=== PATIENT | female | born 1980 | race Caucasian/White ===

== ENCOUNTER 2024-07-10 16:08 | Emergency (ER) | payer OTHER, SELFPAY ==
[2024-07-10 16:36] VITALS: BP 175/80; PULSE 72; RESP 18; TEMP 36.7; O2SAT 100
--- NOTE | 2024-07-10 16:52 | ED.URI ---
HPI - URI/Sore Throat General Chief Complaint: Upper Respiratory Infection Stated Complaint: Covid Test Time Seen by Provider: 07/10/24 16:41 Source: patient and RN notes reviewed Mode of arrival: ambulatory Limitations: no limitations History of Present Illness HPI Narrative: Patient presents today complaining of fatigue since yesterday, cough and sore throat since this morning. She has tried no medication for symptoms prior to arrival. Her mother and 3 other family members have tested positive for COVID yesterday. Denies history of asthma or COPD. Patient vapes. Related Data Home Medications Medication Instructions Recorded Confirmed bupropion HCl 150 mg 24 hr tablet, 150 mg PO DAILY 07/10/24 07/10/24 extended release tiotropium bromide 1.25 inhalation 07/10/24 mcg/actuation mist for inhalation (Spiriva Respimat) Allergies Allergy/AdvReac Type Severity Reaction Status Date / Time aspirin Allergy Itching Verified 07/10/24 16:43 Penicillins Allergy Itching Verified 07/10/24 16:43 Sulfa (Sulfonamide Allergy Itching Verified 07/10/24 16:44 Antibiotics) tramadol Allergy Itching Verified 07/10/24 16:44 Review of Systems Review of Systems: CONSTITUTIONAL: Denies body aches, fever, chills, or sweats.+ fatigue EYES: Denies visual changes, redness, or discharge. ENT: Denies rhinorrhea, congestion, or otalgia.+ sore throat CARDIOVASCULAR: Denies chest pain, palpitations, or edema. RESPIRATORY: Denies dyspnea.+ cough GASTROINTESTINAL: Denies abdominal pain, nausea, vomiting, or diarrhea. GENITOURINARY: Denies dysuria or hematuria. SKIN: Denies rash, itching, or wounds. MUSCULOSKELETAL: Denies back pain, joint pain, or myalgia. NEUROLOGIC: Denies headache, numbness, tingling, or weakness. PSYCH: Denies depression or anxiety. PMFSH Comments At time of signature, I have reviewed and agree with nursing past medical, surgical, social and family history unless otherwise noted. Please see nursing chart for further information. There is no relevant family history pertinent to the presenting complaint Exam Narrative: GENERAL: Well-appearing, well-nourished, and in no acute distress. HEAD: Normocephalic, atraumatic. EYES: EOMI. No redness or drainage. Conjunctivae normal. ENT: Mucous membranes pink and moist. Nares clear. No rhinorrhea. TMs normal bilaterally. Throat normal. Uvula midline. NECK: Normal AROM. Supple. No lymphadenopathy. CHEST: No respiratory distress. Expiratory wheezing throughout HEART: Regular rate and rhythm. No murmur appreciated. EXTREMITIES: Normal range of motion. No edema. SKIN: Warm, dry, no rash. Capillary refill normal. Normal skin turgor. NEURO: No focal deficits. Alert and oriented x3. Gait steady. PSYCH: Normal affect. No signs of depression or anxiety. Course Course Level of Care: Express Care Visit Vital Signs Vital signs: Vital Signs Temperature 98.1 F 07/10/24 16:36 Pulse Rate 72 07/10/24 16:36 Respiratory Rate 18 07/10/24 16:36 Blood Pressure 175/80 H 07/10/24 16:36 Pulse Oximetry 100 07/10/24 16:36 Oxygen Delivery Room Air 07/10/24 16:36 Temperature 98.1 F 07/10/24 16:36 Pulse Rate 72 07/10/24 16:36 Respiratory Rate 18 07/10/24 16:36 Blood Pressure 175/80 H 07/10/24 16:36 Pulse Oximetry 100 07/10/24 16:36 Oxygen Delivery Room Air 07/10/24 16:36 Review MDM - URI/Sore Throat MDM Narrative Medical decision making narrative: COVID negative. Symptoms likely viral in etiology. Discussed [id number] medication use and duration of illness. Prescription for albuterol and short course of steroids sent to pharmacy for patient's wheezing. Anticipatory guidance given. ED precautions given. Differential Diagnosis Differential diagnosis: Likely upper respiratory infection, viral infection and other (COVID-19) Lab Data Attestation: I reviewed the patient's lab results. Labs: Lab Results
[2024-07-10 16:58] LABS: EDCOVIDSCREEN Negative (Negative)
== END 2024-07-10 17:16 | disposition home or self-care (01) ==
PROVIDERS: Emergency Provider Nurse Practitioner
DX: J06.9 Acute upper respiratory infection, unspecified (principal); Z79.899 Other long term (current) drug therapy; Z20.822 Contact with and (suspected) exposure to COVID-19
CPT/HCPCS: 87426; 99203; G0463